=== PATIENT | male | born 1945 | race Caucasian/White ===

== ENCOUNTER 2017-01-27 15:41 | Inpatient (IN) | payer OTHER, MEDICARE ==
[~2017-01-27] VITALS: Ht 188 cm; Wt 94.3 kg
[~2017-01-27 15:41] MED LIST: TAB-TAB PO; VITA100017 PO
[2017-01-27 15:45] VITALS: BP 119/67; PULSE 72; RESP 17; TEMP 97.7; O2SAT 92
--- NOTE | 2017-01-27 15:48 | PD ---
Physical Exam Time Seen by Provider: 15:46 Narrative 71[facility]. Denies chest pain. Hx of spontaneous collapsed lung in 1973. Denies hx of of COPD or Asthma. VS reviewed. Patient seen in triage. Awaiting bed placement. Data Data Last Documented VS Vital Signs Date Time Temp Pulse Resp B/P Pulse Ox O2 Delivery O2 Flow Rate FiO2 01/27/17 15:45 97.7 72 17 119/67 92 MDM Supervised Visit with NEHAL: Cheri Calles January 27, 2017 15:48
[2017-01-27 15:56] VITALS: O2SAT 100
[2017-01-27] MEDS ORDERED: SIMV40TA PO (16:00)
[2017-01-27] MEDS ORDERED: CARV25TA PO (16:00)
[2017-01-27] MEDS ORDERED: ENAL5TAB PO (16:00)
[2017-01-27] MEDS ORDERED: FURO20TA PO (16:00)
--- NOTE | 2017-01-27 16:13 | PD ---
HPI Chief Complaint: Respiratory Symptoms Time Seen by Provider: 16:08 Travel History International Travel<30 days: No Contact w/Intl Traveler<30days: No Traveled to known affect area: No History of Present Illness HPI Patient comes in at the advice of the [facility] for further treatment and evaluation of his shortness of breath and abdominal discomfort ongoing for 10 days since quitting smoking. Patient states he is a bowel movement every morning but since he quit smoking did not have of vomiting for 3 days and had a drink some Epsom Salt with Warm Water to Have a Bowel Movement. Patient states he last had a bowel movement yesterday was hard. Patient denies any melena, bright red blood per rectum, nausea, vomiting, chest pain, headache, fevers, or previous episodes like this. Patient states he feels his abdomen is distended and is concerned this is contributing to his shortness of breath. Patient states he's having trouble sleeping at night as he cannot get comfortable. PFSH Past Medical History Arthritis: No Asthma: No Autoimmune Disease: No Blood Disorders: No Anxiety: No Depression: No Heart Rhythm Problems: No Cancer: No Cardiovascular Problems: No High Cholesterol: Yes Chemotherapy: No Chest Pain: No Congestive Heart Failure: Yes COPD: Yes Cerebrovascular Accident: No Diabetes: No Diminished Hearing: No Endocrine: No Gastrointestinal Disorders: Yes GERD: No Glaucoma: No Genitourinary: No Headaches: No Hepatitis: No Hiatal Hernia: No Hypertension: Yes Immune Disorder: No Kidney Stones: No Musculoskeletal: No Neurologic: No Psychiatric: No Reproductive: No Respiratory: Yes Migraines: No Myocardial Infarction: No Radiation Therapy: No Renal Failure: No Seizures: No Sickle Cell Disease: No Sleep Apnea: No Thyroid Disease: No Ulcer: No Past Surgical History Abdominal Surgery: Yes (APPENDECTOMY) AICD: No Appendectomy: Yes Arteriovenous Shunt: No Cardiac Surgery: No Cholecystectomy: No Ear Surgery: No Endocrine Surgery: No Eye Surgery: Yes (STITCHES RIGHT EYE) Genitourinary Surgery: No Insulin Pump: No Joint Replacement: No Oral Surgery: No Pacemaker: No Thoracic Surgery: No Other Surgery: Yes Social History Alcohol Use: Yes (OCC.) Tobacco Use: No (1PPD CIGARETTS QUIT 10 days ago) Substance Use: No Allergies-Medications (Allergen,Severity, Reaction): Coded Allergies: No Known Allergies (Verified , 10/08/09) Reported Meds & Prescriptions Reported Meds & Active Scripts Active Reported Carvedilol 25 Mg Tab 25 Mg PO BID Simvastatin 40 Mg Tab 40 Mg PO HS Enalapril (Enalapril Maleate) 5 Mg Tab 5 Mg PO DAILY Furosemide 20 Mg Tab 20 Mg PO DAILY Review of Systems Except as stated in HPI: all other systems reviewed are Neg Physical Exam Narrative GENERAL: Well-developed, overly nourished, in no acute distress, and non-ill appearing. SKIN: Focused skin assessment warm and dry. HEAD: Atraumatic. Normocephalic. EYES: Pupils equal and round. EOMI. No scleral icterus. No injection or drainage. ENT: No nasal bleeding or discharge. Mucous membranes pink and moist. NECK: Trachea midline. No JVD. Supple. No nuclear rigidity. CARDIOVASCULAR: Regular rate and rhythm. No murmur appreciated. RESPIRATORY: No accessory muscle use. No respiratory distress. Clear to auscultation. Breath sounds equal bilaterally. GASTROINTESTINAL: Abdomen soft, non-tender, slightly distended. Hepatic and splenic margins not palpable. Hyperactive bowel sounds 4. No pulsatile mass. MUSCULOSKELETAL: No obvious deformities. No clubbing. No cyanosis. Trace edema bilateral lower extremities. Full range of motion. NEUROLOGICAL: Awake and alert. No obvious cranial nerve deficits. Motor grossly within normal limits. Normal speech. PSYCHIATRIC: Appropriate mood and affect; insight and judgment normal. Data Data Last Documented VS Vital Signs Date Time Temp Pulse Resp B/P Pulse Ox O2 Delivery O2 Flow Rate FiO2 01/27/17 18:00 71 16 130/104 100 Room Air 01/27/17 15:45 97.7 Orders Complete Blood Count With Diff (01/27/17 16:03) Comprehensive Metabolic Panel (01/27/17 16:03) Lipase (01/27/17 16:03) Prothrombin Time / Inr (Pt) (01/27/17 16:03) Act Partial Throm Time (Ptt) (01/27/17 16:03) Ct Abd/Pel W Iv Contrast(Rout) (01/27/17 16:03) Iv Access Insert/Monitor (01/27/17 16:03) Ecg Monitoring (01/27/17 16:03) Oximetry (01/27/17 16:03) Sodium Chloride 0.9% Flush (Ns Flush) (01/27/17 16:15) Electrocardiogram (01/27/17 16:03) Chest, Single Ap (01/27/17 16:03) B-Type Natriuretic Peptide (01/27/17 16:07) Ckmb (Isoenzyme) Profile (01/27/17 16:21) Troponin I (01/27/17 16:21) Iohexol 350 Inj (Omnipaque 350 Inj) (01/27/17 17:15) Furosemide Inj (Lasix Inj) (01/27/17 18:00) Aspirin Chew (Aspirin Chew) (01/27/17 18:00) Admit Order (Ed Use Only) (01/27/17 18:01) Labs Laboratory Tests Test 01/27/17 01/27/17 16:05 16:30 White Blood Count 10.8 TH/MM3 Red Blood Count 5.17 MIL/MM3 Hemoglobin 15.1 GM/DL Hematocrit 47.5 % Mean Corpuscular Volume 91.9 FL Mean Corpuscular Hemoglobin 29.3 PG Mean Corpuscular Hemoglobin 31.8 % Concent Red Cell Distribution Width 15.0 % Platelet Count 255 TH/MM3 Mean Platelet Volume 7.9 FL Neutrophils (%) (Auto) 73.1 % Lymphocytes (%) (Auto) 13.0 % Monocytes (%) (Auto) 10.1 % Eosinophils (%) (Auto) 2.6 % Basophils (%) (Auto) 1.2 % Neutrophils # (Auto) 7.9 TH/MM3 Lymphocytes # (Auto) 1.4 TH/MM3 Monocytes # (Auto) 1.1 TH/MM3 Eosinophils # (Auto) 0.3 TH/MM3 Basophils # (Auto) 0.1 TH/MM3 CBC Comment DIFF FINAL Differential Comment Sodium Level 142 MEQ/L Potassium Level 4.6 MEQ/L Chloride Level 108 MEQ/L Carbon Dioxide Level 26.1 MEQ/L Anion Gap 8 MEQ/L Blood Urea Nitrogen 18 MG/DL Creatinine 1.35 MG/DL Estimat Glomerular Filtration 52 ML/MIN Rate Random Glucose 82 MG/DL Calcium Level 9.0 MG/DL Total Bilirubin 0.8 MG/DL Aspartate Amino Transf 14 U/L (AST/SGOT) Alanine Aminotransferase 15 U/L (ALT/SGPT) Alkaline Phosphatase 92 U/L Total Creatine Kinase 76 U/L Troponin I 0.06 NG/ML B-Type Natriuretic Peptide 1138 PG/ML Total Protein 7.5 GM/DL Albumin 3.5 GM/DL Lipase 138 U/L Prothrombin Time 11.8 SEC Prothromb Time International 1.1 RATIO Ratio Activated Partial 25.1 SEC Thromboplast Time MDM Medical Decision Making Medical Screen Exam Complete: Yes Emergency Medical Condition: Yes Interpretation(s) EKG reviewed by Dr. Sanchez shows a paced rhythm with ventricular rate of 69. Chest x-ray read by radiologist shows: CONCLUSION: Bilateral airspace disease. Small right pleural effusion cardiac pacemaker. CT abdomen read by the radiologist shows: CONCLUSION: Nonspecific intestinal pattern with air-fluid levels throughout the small intestinal tract. No evidence of pathologic distention. Cholelithiasis. Colonic diverticulosis without evidence of active inflammatory disease. Moderate cardiomegaly and loculated bilateral pleural effusions. Differential Diagnosis Acute coronary syndrome, CHF exacerbation, ileus, constipation, SBO, pneumonia, other Narrative Course Patient seen and examined. Initial laboratory and radiological studies were obtained and reviewed. Patient is given IV Lasix and aspirin. Discussed patient with Dr. Sanchez, who saw and evaluated the patient and is in agreement with plan of care and disposition. Discussed all findings and plan of care with patient, who is agreeable for admission. All questions were answered. Patient remained stable throughout ED course. Physician Communication Physician Communication [address] Aguila, who is agreeable to admit patient. Diagnosis Primary Impression: CHF exacerbation Qualified Code: I50.9 - Acute on chronic congestive heart failure, unspecified congestive heart failure type Additional Impressions: Elevated troponin Cardiomyopathy Qualified Code: I42.9 - Cardiomyopathy, unspecified type Admitting Information Admitting Physician Requests: Observation Condition: Stable Zoran Oliver January 27, 2017 16:13
[2017-01-27] MEDS ORDERED: SODIUM CHLORIDE 0.9% FLUSH 10 ML FLUSH IV FLUSH PRN ×2 (16:15→19:45)
[2017-01-27 16:24] LABS: AUTOMATED NEUTROPHIL # 7.9 TH/MM3 (1.8-7.7); BASOPHIL # 0.1 TH/MM3 (0-0.2); BASOPHIL % 1.2 % (0.0-2.0); EOSINOPHIL # 0.3 TH/MM3 (0-0.4); EOSINOPHIL % 2.6 % (0.0-4.0); HEMATOCRIT 47.5 % (39.0-51.0); HEMO FLAGS DIFF FINAL; LYMPHOCYTE # 1.4 TH/MM3 (1.0-4.8); MEAN CELL VOLUME 91.9 FL (80.0-100.0); MEAN CORPUSCULAR HEMOGLOBIN 29.3 PG (27.0-34.0); MEAN CORPUSCULAR HGB CONC 31.8 % (32.0-36.0); MONO % 10.1 % (0.0-8.0); NEUT % 73.1 % (16.0-70.0); PLATELET COUNT 255 TH/MM3 (150-450); RED BLOOD COUNT 5.17 MIL/MM3 (4.50-5.90); WHITE BLOOD COUNT 10.8 TH/MM3 (4.0-11.0)
--- NOTE | 2017-01-27 16:34 | RADRPT ---
EXAM DATE/TIME: 01/27/2017 16:20 [facility] COMPARISON: No previous studies available for comparison. INDICATIONS : Short of breath. MEDICAL HISTORY : None. SURGICAL HISTORY : Pacemaker. ENCOUNTER: Initial ACUITY: 1 week PAIN SCORE: 0/10 LOCATION: Bilateral chest FINDINGS: Patchy airspace disease is identified in both lung bases and in the mid left lung. There is a small r ight pleural effusion. Heart is at the upper limits of normal in size. Pacemaker is noted in place. CONCLUSION: Bilateral airspace disease Small right pleural effusion cardiac pacemaker. Pop Parkinson MD on January 27, 2017 at 16:30 Board Certified Radiologist. This report was verified electronically.
[2017-01-27 17:00] LABS: ALKALINE PHOSPHATASE 92 U/L (45-117); ALT (GPT) 15 U/L (12-78); ANION GAP 8 MEQ/L (5-15); AST (GOT) 14 U/L (15-37); BICARBONATE 26.1 MEQ/L (21.0-32.0); BLOOD UREA NITROGEN 18 MG/DL (7-18); CHLORIDE 108 MEQ/L (98-107); GLOMERULAR FILTRATION RATE 52 ML/MIN (>89); POTASSIUM 4.6 MEQ/L (3.5-5.1); SODIUM (NA) 142 MEQ/L (136-145); TOTAL BILIRUBIN ADULT 0.8 MG/DL (0.2-1.0)
[2017-01-27] MEDS ORDERED: IOHEXOL 350 MG/ML 10 ML VIAL (for RAD DIAG) IV ONE (17:15)
[2017-01-27 17:17] LABS: APTT (PATIENT) 25.1 SEC (24.3-30.1); INTERNATIONAL NORMALIZED RATIO 1.1 RATIO; PROTHROMBIN TIME - PATIENT 11.8 SEC (9.8-11.6)
--- NOTE | 2017-01-27 17:36 | RADRPT ---
EXAM DATE/TIME: 01/27/2017 17:18 [facility] COMPARISON: No previous studies available for comparison. INDICATIONS : Abdomen pain. IV CONTRAST: 75 cc Omnipaque 350 (iohexol) IV ORAL CONTRAST: No oral contrast ingested. RADIATION DOSE: 12.15 CTDIvol (mGy) MEDICAL HISTORY : None SURGICAL HISTORY : Appendectomy. ENCOUNTER: Initial ACUITY: 1 day PAIN SCALE: 4/10 LOCATION: Bilateral abdomen. TECHNIQUE: Volumetric scanning of the abdomen and pelvis was performed. Using automated exposure control and ad justment of the mA and/or kV according to patient size, radiation dose was kept as low as reasonably achievable to obtain optimal diagnostic quality images. FINDINGS: LOWER LUNGS: Loculated appearing effusions are identified in both bases. There is associated pleural thickening an d calcified pleural plaque. Streaky air space disease suggesting atelectasis and/or scarring is noted . Heart is moderately enlarged. LIVER: Homogeneous density without lesion. There is no dilation of the biliary tree. A single calcified gal lstone is identified. SPLEEN: Normal size without lesion. PANCREAS: Within normal limits. KIDNEYS: Normal in size and shape. There is no mass, stone or hydronephrosis. ADRENAL GLANDS: Within normal limits. VASCULAR: There is no aortic aneurysm. BOWEL/MESENTERY: Air-fluid levels are scattered throughout the small intestinal tract. There is no evidence of patholo gic distention, free air or mass effect. Multiple diverticula are seen throughout the sigmoid colon. There are no pericolonic inflammatory changes. ABDOMINAL WALL: A small fat containing umbilical hernia is noted. RETROPERITONEUM: There is no lymphadenopathy. BLADDER: No wall thickening or mass. REPRODUCTIVE: Within normal limits. INGUINAL: There is no lymphadenopathy or hernia. MUSCULOSKELETAL: Hypertrophic facet arthropathy is noted in the lower lumbar spine. CONCLUSION: Nonspecific intestinal pattern with air-fluid levels throughout the small intestinal tract. No evidence of pathologic distention. Cholelithiasis Colonic diverticulosis without evidence of active inflammatory disease. Moderate cardiomegaly and loculated bilateral pleural effusions. Pop Parkinson MD on January 27, 2017 at 17:28 Board Certified Radiologist. This report was verified electronically.
[2017-01-27 18:00] VITALS: BP 130/104; PULSE 71; RESP 16; O2SAT 100
[2017-01-27] MEDS ORDERED: FUROSEMIDE 40 MG/4 ML VIAL IV PUSH ONE (18:00)
[2017-01-27] MEDS: ASPIRIN 81 MG CHEW TAB PO ONE ×2 (18:00→18:10)
[2017-01-27 19:00] VITALS: BP 108/69; PULSE 74; RESP 16; O2SAT 100
[2017-01-27] MEDS ORDERED: ONDANSETRON HCL 4 MG/2 ML VIAL IVP PRN (19:45)
[2017-01-27] MEDS ORDERED: MAGNESIUM HYDROXIDE SUSP 30 ML CUP PO PRN (19:45)
[2017-01-27] MEDS ORDERED: NALOXONE HCL 0.4 MG/ML AMP IV PRN (19:45)
[2017-01-27] MEDS ORDERED: ACETAMINOPHEN 325 MG TAB PO PRN (19:45)
[2017-01-27 21:00] VITALS: BP 115/74; PULSE 40; PULSE 70; RESP 16; O2SAT 100
[2017-01-27] MEDS ORDERED: NON-FORMULARY DRUG (Simvastatin 40 MG) PO SCH (21:00)
--- NOTE | 2017-01-27 21:26 | HHI.HP ---
[facility] Admission Diagnosis CHF, elevated troponin, cardiomyopathy Diagnoses: Chief Complaint: SOB with abdominal bloating Travel History International Travel<30 Days: No Contact w/Intl Traveler <30 Da: No Traveled to Known Affected Are: No History of Present Illness This is a pleasant 71-year-old male patient with past medical history which includes congestive heart failure- last recorded echocardiogram 2009 ejection fraction of 20-25% status post pacemaker/AICD placement, dilated cardiomyopathy , hyperlipidemia, hypertension and COPD. Patient reports he stopped smoking approximately 2 weeks ago and since then has been experiencing shortness of breath which is gone progressively worse associated with abdominal bloating/ distention. Patient reports for the past 4-5 nights he has been, "gulping for air," unable to lay flat has had to sleep sitting up on the couch. Patient also reports associated anxiety with his shortness of breath. Patient denies chest pain, cough, weight gain, changes in diet, changes in medication or lower extremity edema. Patient initially thought the abdominal distention was secondary to constipation took Epsom salts as a laxative at home with positive bowel movement 1 day ago. Abdominal bloating/distention has continued. BNP 1138, troponin 0.06 Abdominal/pelvis CT reveals moderate cardiomegaly and loculated bilateral pleural effusions Review of Systems Except as stated in HPI: all other systems reviewed are Neg Past Family Social History Past Medical History congestive heart failure- last recorded echocardiogram 2009 ejection fraction of 20-25% status post pacemaker/AICD placement, dilated cardiomyopathy, hyperlipidemia, hypertension and COPD Past Surgical History Appendectomy at 19 years old Pacemaker/AICD placement Reported Medications Carvedilol 25 Mg Tab 25 Mg PO BID Simvastatin 40 Mg Tab 40 Mg PO HS Enalapril (Enalapril Maleate) 5 Mg Tab 5 Mg PO DAILY Furosemide 20 Mg Tab 20 Mg PO DAILY Aspirin 325 mg by mouth daily Allergies: Coded Allergies: No Known Allergies (Verified , 10/08/09) Active Ordered Medications Current Medications Medications (Trade) Dose Ordered Sig/Leonides Route Start Time Stop Time Status Last Admin (NS Flush) 2 ml UNSCH PRN IV FLUSH 5/8/17 19:45 (NS Flush) 2 ml BID IV FLUSH 01/27/17 21:00 (Tylenol) 650 mg Q4H PRN PO 01/27/17 19:45 (Zofran Inj) 4 mg Q6H PRN IVP 01/27/17 19:45 (Colace) 100 mg Q12H PO 01/27/17 21:00 (Milk Of Magnesia Liq) 30 ml Q12H PRN PO 01/27/17 19:45 (Lovenox Inj) 40 mg Q24H SQ 01/27/17 21:00 (Narcan Inj) 0.4 mg UNSCH PRN IV 01/27/17 19:45 (Lasix Inj) 40 mg BID@,18 IV PUSH 01/28/17 09:00 (Vasotec) 5 mg DAILY PO 01/28/17 09:00 (Pravachol) 80 mg HS PO 01/27/17 21:00 Family History Father secondary to EtOH abuse, mother also had pacemaker Social History Reports EtOH use one to 2 beers about once a week Quit smoking cigarettes approximately 2 weeks ago prior to that smoked one pack cigarettes per day had also quit from [id number] Denies illicit drug use Physical Exam Vital Signs Vital Signs Date Time Temp Pulse Resp B/P Pulse Ox O2 Delivery O2 Flow Rate FiO2 01/27/17 18:00 71 16 130/104 100 Room Air 01/27/17 15:56 14 Room Air 01/27/17 15:56 100 Room Air 01/27/17 15:45 97.7 72 17 119/67 92 Physical Exam GENERAL: This is a well-nourished, well-developed patient, in no apparent distress. SKIN: No rashes, ecchymoses or lesions. Cool and dry. HEAD: Atraumatic. Normocephalic. No temporal or scalp tenderness. EYES: Extraocular motions intact. No scleral icterus. No injection or drainage. CARDIOVASCULAR: Regular rate and rhythm without murmurs, gallops, or rubs. RESPIRATORY: Faint bibasilar crackles GASTROINTESTINAL: Abdomen soft, non-tender, slightly distended. No guarding. MUSCULOSKELETAL: Extremities without clubbing, cyanosis, or edema. No joint tenderness, effusion, or edema noted. No calf tenderness. Negative Homans sign bilaterally. NEUROLOGICAL: Awake and alert. Motor and sensory grossly within normal limits. Five out of 5 muscle strength in all muscle groups. Normal speech. Laboratory Laboratory Tests Test 01/27/17 01/27/17 16:05 16:30 White Blood Count 10.8 Red Blood Count 5.17 Hemoglobin 15.1 Hematocrit 47.5 Mean Corpuscular Volume 91.9 Mean Corpuscular Hemoglobin 29.3 Mean Corpuscular Hemoglobin 31.8 Concent Red Cell Distribution Width 15.0 Platelet Count 255 Mean Platelet Volume 7.9 Neutrophils (%) (Auto) 73.1 Lymphocytes (%) (Auto) 13.0 Monocytes (%) (Auto) 10.1 Eosinophils (%) (Auto) 2.6 Basophils (%) (Auto) 1.2 Neutrophils # (Auto) 7.9 Lymphocytes # (Auto) 1.4 Monocytes # (Auto) 1.1 Eosinophils # (Auto) 0.3 Basophils # (Auto) 0.1 CBC Comment DIFF FINAL Differential Comment Sodium Level 142 Potassium Level 4.6 Chloride Level 108 Carbon Dioxide Level 26.1 Anion Gap 8 Blood Urea Nitrogen 18 Creatinine 1.35 Estimat Glomerular Filtration 52 Rate Random Glucose 82 Calcium Level 9.0 Total Bilirubin 0.8 Aspartate Amino Transf 14 (AST/SGOT) Alanine Aminotransferase 15 (ALT/SGPT) Alkaline Phosphatase 92 Total Creatine Kinase 76 Troponin I 0.06 B-Type Natriuretic Peptide 1138 Total Protein 7.5 Albumin 3.5 Lipase 138 Prothrombin Time 11.8 Prothromb Time International 1.1 Ratio Activated Partial 25.1 Thromboplast Time Result Diagram: 01/27/17 1605 01/27/17 1605 Imaging Last Impressions Chest X-Ray 01/27/17 1603 Signed Impressions: Service Date/Time: Friday, January 27, 2017 16:20 - CONCLUSION: Bilateral airspace disease Small right pleural effusion cardiac pacemaker. Pop Parkinson MD Abdomen/Pelvis CT 01/27/17 1603 Signed Impressions: Service Date/Time: Friday, January 27, 2017 17:18 - CONCLUSION: Nonspecific intestinal pattern with air-fluid levels throughout the small intestinal tract. No evidence of pathologic distention. Cholelithiasis Colonic diverticulosis without evidence of active inflammatory disease. Moderate cardiomegaly and loculated bilateral pleural effusions. Pop Parkinson MD Assessment and Plan Problem List: (1) CHF exacerbation ICD Code: I50.9 Status: Acute (2) Cardiomyopathy ICD Code: I42.9 Status: Acute (3) Elevated troponin ICD Code: R74.8 Status: Acute (4) Pleural effusion ICD Code: J90 Status: Acute Assessment and Plan This is a pleasant 71-year-old male patient with past medical history which includes congestive heart failure- last recorded echocardiogram 2009 ejection fraction of 20-25% status post pacemaker/AICD placement, dilated cardiomyopathy , hyperlipidemia, hypertension and COPD. Patient reports he stopped smoking approximately 2 weeks ago and since then has been experiencing shortness of breath which is gone progressively worse associated with abdominal bloating/ distention. Acute exacerbation of chronic systolic congestive heart failure last recorded echocardiogram 2009 showed ejection fraction of 20-25% Bilateral pleural effusion Continue home lisinopril Hold Coreg at this time- resume if blood pressure stable Lasix 40 mg IV twice a day recheck BMP in AM Echocardiogram ordered and pending Consult cardiology Reviewed CAT scan of the abdomen/pelvis reveals: Nonspecific intestinal pattern with air-fluid levels throughout the small intestinal tract. No evidence of pathologic distention. Cholelithiasis Colonic diverticulosis without evidence of active inflammatory disease. Moderate cardiomegaly and loculated bilateral pleural effusions. Elevated troponin 0.06- with no chest pain likely secondary to CHF serial troponin serial EKG Continue aspirin daily Hyperlipidemia continue home medication Lovenox for DVT prophylaxis Discussed with ER provider, nursing patient and family members at bedside Written by Olga Spain, acting as scribe for Dr. Stern on 01/27/17 at 21 :48. This note was transcribed by scribe [Olga Spain]. I, Dr. Kadie Stern personally performed the history, physical exam, and medical decision making; and confirmed the accuracy of the information in the transcribed note. Authenticated by Dr. Kadie Stern on 01/27/17 at 6430. Physician Certification 2 Midnight Certification Type: Admission for Inpatient Services Order for Inpatient Services The services are ordered in accordance with Medicare regulations or non- Medicare payer requirements, as applicable. In the case of services not specified as inpatient-only, they are appropriately provided as inpatient services in accordance with the 2-midnight benchmark. Estimated LOS (days): 3 days is the estimated time the patient will need to remain in the hospital, assuming treatment plan goals are met and no additional complications. Post-Hospital Plan: Home Problem Qualifiers (1) CHF exacerbation: Qualified Code: I50.23 - Acute on chronic systolic congestive heart failure (2) Cardiomyopathy: Qualified Code: I42.9 - Cardiomyopathy, unspecified type Olga Spain January 27, 2017 21:26 Kadie Stern MD January 28, 2017 07:30
[2017-01-27] MEDS: SODIUM CHLORIDE 0.9% FLUSH 10 ML FLUSH IV FLUSH SCH (22:09)
[2017-01-27] MEDS: PRAVASTATIN SOD 80 MG TAB PO SCH (22:10)
[2017-01-27] MEDS: ENOXAPARIN SODIUM 40 MG/0.4 ML SYRINGE SQ SCH (22:10)
[2017-01-27] MEDS: DOCUSATE SODIUM 100 MG CAP PO SCH (22:10)
[2017-01-28 00:45] VITALS: BP 104/54; PULSE 75; RESP 18; TEMP 95.9; O2SAT 94
[2017-01-28 04:19] VITALS: BP 95/51; PULSE 68; RESP 18; TEMP 96.2; O2SAT 92
[2017-01-28 04:29] LABS: AUTOMATED NEUTROPHIL # 7.8 TH/MM3 (1.8-7.7); BASOPHIL # 0.2 TH/MM3 (0-0.2); BASOPHIL % 1.4 % (0.0-2.0); EOSINOPHIL # 0.4 TH/MM3 (0-0.4); EOSINOPHIL % 3.5 % (0.0-4.0); HEMATOCRIT 44.2 % (39.0-51.0); HEMO FLAGS DIFF FINAL; LYMPH % 14.7 % (9.0-44.0); LYMPHOCYTE # 1.6 TH/MM3 (1.0-4.8); MEAN CORPUSCULAR HEMOGLOBIN 30.4 PG (27.0-34.0); MEAN CORPUSCULAR HGB CONC 33.8 % (32.0-36.0); MONO % 8.5 % (0.0-8.0); NEUT % 71.9 % (16.0-70.0); PLATELET COUNT 251 TH/MM3 (150-450); RED BLOOD COUNT 4.91 MIL/MM3 (4.50-5.90); RED CELL DISTRIBUTION WIDTH 14.6 % (11.6-17.2); WHITE BLOOD COUNT 10.8 TH/MM3 (4.0-11.0)
[2017-01-28 04:54] LABS: BICARBONATE 31.2 MEQ/L (21.0-32.0); POTASSIUM 4.4 MEQ/L (3.5-5.1)
[2017-01-28 08:00] VITALS: BP 112/68; PULSE 80; RESP 18; TEMP 98.3; O2SAT 94
--- NOTE | 2017-01-28 08:30 | MB ---
cc: AISSATOU VALLADARES MD DATE OF CONSULTATION January 27, 2017 REASON FOR CONSULTATION CHF. HISTORY OF PRESENT ILLNESS Mr. Bean he is a 71-year-old man you does have a nonischemic cardiomyopathy by catheterization in 2009 and a known ejection fraction of about 20%. He is status post ICD and does also have a history of hypertension, hyperlipidemia and COPD. He reports he quit smoking and 4-5 days later had progressive shortness of breath. He reports that he was gulping for air and unable to lie flat. The patient presented to the [facility] and was subsequently referred to [place]. The patient notes that after the Lasix in the ER yesterday he did have fairly significant diuresis and is feeling some better this morning. PAST MEDICAL HISTORY 1. Nonischemic cardiomyopathy with ICD. 2. Hypertension. 3. Hyperlipidemia. 4. COPD. OUTPATIENT MEDICATIONS 1. Carvedilol 25 mg b.i.d. 1. Simvastatin 40 mg q.h.s. 2. Enalapril 5 mg a day. 3. Lasix 20 mg a day. 4. Aspirin. ALLERGIES No known drug allergies. SOCIAL HISTORY The patient occasionally has alcohol and quit smoking about two weeks ago. FAMILY HISTORY Negative for CAD. REVIEW OF SYSTEMS Except as mentioned in the HPI, all 12 systems are negative. PHYSICAL EXAMINATION VITAL SIGNS: 96.2, 68, 18, 95/51. GENERAL: In general he is well appearing man who is in no apparent distress. NECK: His neck is free from JVD. LUNGS: Decreased in the bases. CARDIOVASCULAR EXAMINATION: He has a normal S1 and S2. I did not appreciate any murmurs, rubs or gallops. ABDOMEN: Sof. EXTREMITIES: trace amount of edema. CHEST X-RAY From 01/27/2017 shows bilateral air space disease and a small right pleural effusion. CT ABDOMEN She has a nonspecific intestinal pattern with a air-fluid levels, moderate cardiomegaly and bilateral loculated pleural effusions. LAB VALUES Significant for serial troponins of 0.06/0.06/0.6. His BNP 1138 and creatinine is 1.54. His creatinine yesterday was 1.35 and in 2009 was 1.0. IMPRESSION Acute on chronic systolic failure - The patient does have a history of a nonischemic cardiomyopathy and had done reasonably well. He does have an elevated BNP and effusions along with his progressive shortness of breath that does suggest CHF. He has responded nicely to diuresis. His creatinine has creeped up a bit. In light of this, I am going to decrease his Lasix back to his p.o. dosing. We will obtain an echocardiogram. His Coreg should absolutely be restarted. If he is stable in the a.m., it is reasonable for discharge. Hypertension - The patient's BP today is a bit low which is somewhat expected when his cardiac meds are maxed out for his heart failure. Hyperlipidemia - The patient will continue on a statin. Allyson Trevino /7:42 AM /8:21 AM
[2017-01-28] MEDS ORDERED: FUROSEMIDE 40 MG/4 ML VIAL IV PUSH SCH (09:00)
[2017-01-28] MEDS: ENALAPRIL MALEATE 5 MG TAB PO SCH (09:00)
[2017-01-28] MEDS: DOCUSATE SODIUM 100 MG CAP PO SCH ×2 (09:53→21:03)
[2017-01-28] MEDS: SODIUM CHLORIDE 0.9% FLUSH 10 ML FLUSH IV FLUSH SCH ×2 (09:54→21:04)
[2017-01-28] MEDS: POTASSIUM CHLORIDE 10 MEQ CONTROLLED RELEASE TAB PO SCH ×2 (09:54→21:00)
[2017-01-28] MEDS: CARVEDILOL 12.5 MG TAB PO SCH ×2 (09:54→21:02)
[2017-01-28] MEDS: FUROSEMIDE 20 MG TAB PO SCH ×2 (09:55→17:44)
[2017-01-28] MEDS: ASPIRIN EC 81 MG TABEC PO SCH (09:55)
[2017-01-28 12:00] VITALS: BP 103/59; PULSE 73; RESP 18; TEMP 98.1; O2SAT 95
--- NOTE | 2017-01-28 15:16 | EC ---
Study Study Date:01/28/2017 STUDY CONCLUSIONS SUMMARY - Left ventricle: The cavity size was moderately to severely dilated. Wall thickness was normal. Systolic function was severely reduced. The estimated ejection fraction was in the range of 10% to 15%. Diffuse hypokinesis. - Aortic valve: Valve area: 2.64cm^2 (Vmax). - Mitral valve: Mild regurgitation. - Left atrium: The atrium was mildly dilated. - Tricuspid valve: Mild regurgitation. - Pulmonary arteries: Systolic pressure was mildly increased. If LV function is below 40, please consider prescribing an ACEI or ARB or document rationale for non-use. PROCEDURE DATA STUDY STATUS: Elective. Procedure: Transthoracic echocardiography. Image quality was good. Scanning was performed from the parasternal, apical, and subcostal acoustic windows. Study completion: The patient tolerated the procedure well. Transthoracic echocardiography. M-mode, complete 2D, complete spectral Doppler, and color Doppler. Height: Height: 74in. Weight: Weight: 206.6lb. Body mass index: BMI: 26.6kg/m^2. Body surface area: BSA: 2.21m^2. Patient status: Inpatient. CARDIAC ANATOMY LEFT VENTRICLE: The cavity size was moderately to severely dilated. Wall thickness was normal. Systolic function was severely reduced. The estimated ejection fraction was in the range of 10% to 15%. Diffuse hypokinesis. AORTIC VALVE: Trileaflet; normal thickness leaflets. Doppler: Transvalvular velocity was within the normal range. There was no stenosis. No regurgitation. Valve area: 2.64cm^2 (Vmax). Indexed valve area: 1.19cm^2/m^2 (Vmax). AORTA: Aortic root: The aortic root was normal in size. MITRAL VALVE: Structurally normal valve. Doppler: Transvalvular velocity was within the normal range. There was no evidence for stenosis. Mild regurgitation. Valve area by pressure half-time: 3.93cm^2. Indexed valve area by pressure half-time: 1.78cm^2/m^2. Mean gradient: 1mm Hg (D). Peak gradient: 3mm Hg (D). LEFT ATRIUM: The atrium was mildly dilated. RIGHT VENTRICLE: The cavity size was normal. Wall thickness was normal. PULMONIC VALVE: Doppler: Transvalvular velocity was within the normal range. There was no evidence for stenosis. No regurgitation. TRICUSPID VALVE: Structurally normal valve. Doppler: Transvalvular velocity was within the normal range. Mild regurgitation. Peak gradient: 33mm Hg (D). PULMONARY ARTERY: The main pulmonary artery was normal-sized. Systolic pressure was mildly increased. RIGHT ATRIUM: The atrium was normal in size. PERICARDIUM: There was no pericardial effusion. SYSTEMIC VEINS: Inferior vena cava: The vessel was normal in size. Patient weight: 206.6lb _Ejection fraction:_ 65-75% _Fractional shortening:_ 32% up to 5Kg 5-11.5Kg 11.6-22.9Kg 23-45Kg 45-57Kg Aortic Root 7-13 <17 13-22 17-27 17-27 LA diam 6-13 <23 24-38 33-47 37-40 RVID 10-17 7-15 7-15 7-18 8-17 LVIDd 12-22 <32 24-38 33-47 37-40 LVPW 2-4 3-6 5-7 6-8 7-8 IVS 2-4 3-6 5-7 6-8 7-8 BASIC MEASUREMENTS ADULT NORMAL Left ventricle LV internal dimension, ED, chordal *77.1 mm 43-52 level, PLAX LV internal dimension, ES, chordal *72.7 mm 23-38 level, PLAX Fractional shortening, chordal level, *6 % >29 PLAX LV posterior wall thickness, ED 11.3 mm IVS/LVPW ratio, ED 1 <1.3 Volume, ED, MOD, 1-plane 249 ml Volume, ES, MOD, 1-plane 211 ml Ejection fraction, MOD, 1-plane 15 % Stroke volume, MOD, 1-plane 38 ml Volume index, ED, MOD, 1-plane 113 ml/m^2 Volume index, ES, MOD, 1-plane 95 ml/m^2 Stroke index, MOD, 1-plane 17.2 ml/m^2 Ventricular septum Septal thickness, ED 11.3 mm Aortic valve Leaflet separation 18 mm 15-26 Left atrium Anterior-posterior dimension 42 mm Anterior-posterior dimension index 1.9 cm/m^2 <2.2 Right ventricle RV internal dimension, ED, PLAX 36.4 mm 19-38 BASIC MEASUREMENTS ADULT NORMAL Aortic valve Leaflet separation 18 mm 15-26 Aorta Root diameter, ED 29 mm 20-37 DOPPLER MEASUREMENTS ADULT NORMAL Aortic valve Peak velocity, S 125 cm/s VTI, S 25.7 cm Valve area, Vmax 2.64 cm^2 Valve area index, Vmax 1.19 cm^2/m^2 Regurgitant velocity, ED 188 cm/s Regurgitant deceleration 611 cm/s^2 Regurgitant pressure half-time 900 ms Regurgitant gradient, ED 14 mm Hg Mitral valve Peak E-wave velocity 96.7 cm/s Peak A-wave velocity 61.7 cm/s Mean velocity, D 48.6 cm/s Pressure half-time 56 ms Mean gradient, D 1 mm Hg Peak gradient, D 3 mm Hg Peak E/A ratio 1.6 Valve area, pressure half-time 3.93 cm^2 Valve area index, pressure half-time 1.78 cm^2/m^2 Tricuspid valve Peak gradient, D 33 mm Hg Maximal inflow velocity 286 cm/s Systemic veins Estimated CVP 10 mm Hg Pulmonic valve Peak velocity, S 100 cm/s LEGEND: Mean values are shown as u=mean value. Asterisk (*) katz values outside specified normal range. Prepared and signed by Nurys Ramos [id number]
[2017-01-28 16:00] VITALS: BP 104/56; PULSE 74; RESP 18; TEMP 97.8; O2SAT 92
--- NOTE | 2017-01-28 16:24 | HHI.PR ---
Subjective Remarks Follow-up for CHF exacerbation Patient denies any shortness of breathing. He feels like he is doing very well. Deny any cough. Patient is anxious to go home. Patient states making good urine output. Objective Vitals Vital Signs Date Time Temp Pulse Resp B/P Pulse Ox O2 Delivery O2 Flow Rate FiO2 01/28/17 12:00 98.1 73 18 103/59 95 01/28/17 08:00 98.3 80 18 112/68 94 01/28/17 04:19 96.2 68 18 95/51 92 01/28/17 00:45 95.9 75 18 104/54 94 01/27/17 21:00 70 16 115/74 100 Room Air 01/27/17 19:00 74 16 108/69 100 Room Air 01/27/17 18:00 71 16 130/104 100 Room Air I/O 01/27/17 01/27/17 01/27/17 01/28/17 01/28/17 01/28/17 06:59 14:59 22:59 06:59 14:59 22:59 Intake Total 240 ml Balance 240 ml Intake Oral 240 ml # Voids 2 # Bowel Movements 0 Result Diagram: 01/28/17 0418 01/28/17 0418 Objective Remarks GENERAL: in NAD SKIN: Warm and dry. HEAD: Normocephalic. EYES: No scleral icterus. No injection or drainage. NECK: Supple, trachea midline. No JVD or lymphadenopathy. CARDIOVASCULAR: Regular rate and rhythm without murmurs, gallops, or rubs. RESPIRATORY: Bilateral basilar crackles. No accessory muscle use. GASTROINTESTINAL: Abdomen soft, non-tender, nondistended. MUSCULOSKELETAL: No cyanosis, or edema. BACK: Nontender without obvious deformity. No CVA tenderness. Medications and IVs Current Medications Sodium Chloride (NS Flush) 2 ml UNSCH PRN IV FLUSH FLUSH AFTER USING IV ACCESS ; Start 01/27/17 at 16:15; Stop 01/27/17 at 19:53; Status DC Iohexol (Omnipaque 350 Inj) 75 ml STK-MED ONCE IV Last administered on t 17:15; Start 01/27/17 at 17:15; Stop 01/27/17 at 17:16; Status DC Furosemide (Lasix Inj) 40 mg ONCE ONCE IV PUSH Last administered on 01/27/17 18:10; Start 01/27/17 at 18:00; Stop 01/27/17 at 18:01; Status DC Aspirin (Aspirin Chew) 162 mg ONCE ONCE PO ; Start 01/27/17 at 18:00; Stop at 18:01; Status DC Sodium Chloride (NS Flush) 2 ml UNSCH PRN IV FLUSH FLUSH AFTER USING IV ACCESS ; Start 01/27/17 at 19:45 Sodium Chloride (NS Flush) 2 ml BID IV FLUSH Last administered on 01/28/17 09: 54; Start 01/27/17 at 21:00 Acetaminophen (Tylenol) 650 mg Q4H PRN PO TEMP > 100.4; Start 01/27/17 at 19:45 Ondansetron HCl (Zofran Inj) 4 mg Q6H PRN IVP NAUSEA OR VOMITING; Start at 19:45 Docusate Sodium (Colace) 100 mg Q12H PO Last administered on 01/28/17 09:53; Start 01/27/17 at 21:00 Magnesium Hydroxide (Milk Of Magnesia Liq) 30 ml Q12H PRN PO CONSTIPATION; Start 01/27/17 at 19:45 Enoxaparin Sodium (Lovenox Inj) 40 mg Q24H SQ Last administered on 01/27/17 22: 10; Start 01/27/17 at 21:00 Naloxone HCl (Narcan Inj) 0.4 mg UNSCH PRN IV SEE LABEL COMMENTS; Start at 19:45 Furosemide (Lasix Inj) 40 mg BID@,18 IV PUSH ; Start 01/28/17 at 09:00; Stop at 09:00; Status DC Enalapril Maleate (Vasotec) 5 mg DAILY PO ; Start 01/28/17 at 09:00 Non-Formulary Medication 40 mg HS PO CM; Start 01/27/17 at 21:00; Status UNV Pravastatin Sodium (Pravachol) 80 mg HS PO Last administered on 01/27/17 22:10 ; Start 01/27/17 at 21:00 Aspirin (Ecotrin Ec) 81 mg DAILY PO Last administered on 01/28/17 09:55; Start 01/28/17 at 09:00 Carvedilol (Coreg) 12.5 mg Q12HR PO Last administered on 01/28/17 09:54; Start 01/28/17 at 09:00 Furosemide (Lasix) 20 mg BID@09,18 PO Last administered on 01/28/17 09:55; Start 01/28/17 at 09:00 Potassium Chloride (KCl) 10 meq Q12HR PO Last administered on 01/28/17 09:54; Start 01/28/17 at 09:00 A/P Problem List: (1) CHF exacerbation ICD Code: I50.9 Status: Acute (2) Cardiomyopathy ICD Code: I42.9 Status: Acute (3) Elevated troponin ICD Code: R74.8 Status: Acute (4) Pleural effusion ICD Code: J90 Status: Acute Assessment and Plan Acute exacerbation of chronic systolic congestive heart failure last recorded echocardiogram 2009 showed ejection fraction of 20-25% Bilateral pleural effusion Continue home lisinopril Per copy center specialist continue her Coreg. Patient was initially put on Lasix 40 mg IV twice a day clinically he is doing well and his creatinine did increase. Admissions Dean is following and decreased his Lasix to his home dose. CAT scan of the abdomen/pelvis reveals: Nonspecific intestinal pattern with air-fluid levels throughout the small intestinal tract. No evidence of pathologic distention. Cholelithiasis Colonic diverticulosis without evidence of active inflammatory disease. Moderate cardiomegaly and loculated bilateral pleural effusions. Elevated troponin 0.06- with no chest pain likely secondary to CHF Troponins are stable. Mild elevation due to CHF. Continue aspirin daily Acute on chronic renal insufficiency -Secondary to diuretics. -Diuretic dosage was decreased. We'll continue to monitor. -Avoid nephrotoxins. Hyperlipidemia continue home medication Lovenox for DVT prophylaxis Discharge Planning Per copy center specialist patient continues to do well clinically tomorrow and his kidney function improves he can be discharged tomorrow morning. Problem Qualifiers (1) CHF exacerbation: Qualified Code: I50.23 - Acute on chronic systolic congestive heart failure (2) Cardiomyopathy: Qualified Code: I42.9 - Cardiomyopathy, unspecified type Cynthia Aguila MD January 28, 2017 16:24
--- NOTE | 2017-01-28 17:06 | EKG ---
Date Performed: 01/27/2017 Time Performed: 16:12:37 PTAGE: 71 years EKG: ELECTRONIC VENTRICULAR PACEMAKER MARKED ST ELEVATION, CONSIDER ANTEROLATERAL INJURY MARKED ST DEPRESSION, CONSIDER SUBENDOCARDIAL INJURY Compared to PREVIOUS TRACING , there is now evidence of paced rhythm. Non-specific ST-T wave changes continue. PREVIOUS TRACIN10/09/2009 03.12 DOCTOR: Joie Izquierdo Interpretating Date/Time 01/28/2017 17:05:40
--- NOTE | 2017-01-28 17:06 | EKG ---
Date Performed: 01/28/2017 Time Performed: 08:16:29 PTAGE: 71 years EKG: ELECTRONIC VENTRICULAR PACEMAKER ABNORMAL RHYTHM ECG Compared to PREVIOUS TRACING , paced rhythm continues. No significant change. PREVIOUS TRACIN01/27 22.16 DOCTOR: Joie Izquierdo Interpretating Date/Time 01/28/2017 17:06:26
--- NOTE | 2017-01-28 17:06 | EKG ---
Date Performed: 01/27/2017 Time Performed: 22:16:29 PTAGE: 71 years EKG: ELECTRONIC VENTRICULAR PACEMAKER ABNORMAL RHYTHM ECG Compared to PREVIOUS TRACING , the paced rhythm continues. No significant change. PREVIOUS TRACIN 01/25/2017 23.26 DOCTOR: Joie Izquierdo Interpretating Date/Time 01/28/2017 17:06:01
[2017-01-28 20:10] VITALS: BP 112/58; PULSE 83; RESP 17; TEMP 96.4; O2SAT 93
[2017-01-28] MEDS: ENOXAPARIN SODIUM 40 MG/0.4 ML SYRINGE SQ SCH (21:00)
[2017-01-28] MEDS: PRAVASTATIN SOD 80 MG TAB PO SCH (21:00)
[2017-01-29 00:10] VITALS: BP 122/65; PULSE 76; RESP 18; TEMP 97.3; O2SAT 95
[2017-01-29 04:15] VITALS: BP 112/63; PULSE 72; RESP 18; TEMP 96.2; O2SAT 93
--- NOTE | 2017-01-29 07:13 | PD.CARD.PN ---
Subjective Subjective Remarks Pt without complaints Objective Medications Current Medications Medications (Trade) Dose Ordered Sig/Leonides Route Start Time Stop Time Status Last Admin (NS Flush) 2 ml UNSCH PRN IV FLUSH 01/27/17 19:45 (NS Flush) 2 ml BID IV FLUSH 01/27/17 21:00 01/28/17 21:04 (Tylenol) 650 mg Q4H PRN PO 01/27/17 19:45 (Zofran Inj) 4 mg Q6H PRN IVP 01/27/17 19:45 (Colace) 100 mg Q12H PO 01/27/17 21:00 01/28/17 21:03 (Milk Of Magnesia Liq) 30 ml Q12H PRN PO 01/27/17 19:45 (Lovenox Inj) 40 mg Q24H SQ 01/27/17 21:00 01/27/17 22:10 (Narcan Inj) 0.4 mg UNSCH PRN IV 01/27/17 19:45 (Vasotec) 5 mg DAILY PO 01/28/17 09:00 (Pravachol) 80 mg HS PO 01/27/17 21:00 01/28/17 21:00 (Ecotrin Ec) 81 mg DAILY PO 01/28/17 09:00 01/28/17 09:55 (Coreg) 12.5 mg Q12HR PO 01/28/17 09:00 01/28/17 21:02 (Lasix) 20 mg BID@09,18 PO 01/28/17 09:00 01/28/17 17:44 (KCl) 10 meq Q12HR PO 01/28/17 09:00 01/28/17 09:54 Vital Signs / I&O Vital Signs Date Time Temp Pulse Resp B/P Pulse Ox O2 Delivery O2 Flow Rate FiO2 01/29/17 04:15 96.2 72 18 112/63 93 01/29/17 00:10 97.3 76 18 122/65 95 01/28/17 20:10 96.4 83 17 112/58 93 01/28/17 16:00 97.8 74 18 104/56 92 01/28/17 12:00 98.1 73 18 103/59 95 01/28/17 08:00 98.3 80 18 112/68 94 I/O 5/901/28/17 01/28/17 01/29/17 01/29/17 01/29/17 07:00 15:00 23:00 07:00 15:00 23:00 Intake Total 240 ml 1080 ml 240 ml Balance 240 ml 1080 ml 240 ml Intake Oral 240 ml 1080 ml 240 ml # Voids 2 7 2 # Bowel Movements 0 0 0 Physical Exam GENERAL: Well developed, well nourished. No acute distress. HEENT: Jugular venous pressure is normal. CHEST: Lungs clear to auscultation bilaterally. Unlabored respiratory effort. CARDIAC: Regular rate and rhythm without S3, S4, or murmur. ABDOMEN: Soft, nontender, no hepatosplenomegaly. Bowel sounds present. EXTREMITIES: No clubbing, cyanosis, or edema. Imaging ECHO EF 15% Assessment and Plan Assessment and Plan Acute on chronic systolic failure- EF 15%, better today -fluid and sodium cap discussed -on BID lasix, SOO and BB CKD- labs pending Dispo- ok for d/c and follow up at [facility] Nurys Ramos MD January 29, 2017 07:12
[2017-01-29 07:26] LABS: BICARBONATE 27.8 MEQ/L (21.0-32.0); POTASSIUM 4.1 MEQ/L (3.5-5.1)
[2017-01-29 07:53] VITALS: BP 121/62; PULSE 68; RESP 18; TEMP 98; O2SAT 92
[2017-01-29] MEDS: SODIUM CHLORIDE 0.9% FLUSH 10 ML FLUSH IV FLUSH SCH (09:00)
[2017-01-29] MEDS ORDERED: ASPI81TA11 PO (09:30)
[2017-01-29] MEDS ORDERED: POTA-243 PO (09:30)
[2017-01-29] MEDS ORDERED: CARV12.5 PO (09:30)
[2017-01-29] MEDS ORDERED: FURO20TA PO (09:30)
--- NOTE | 2017-01-29 09:30 | HHI.DCPOC ---
Discharge Care Plan Diagnosis: (1) CHF exacerbation (2) Elevated troponin (3) Pleural effusion Goals to Promote Your Health * To prevent worsening of your condition and complications * To maintain your health at the optimal level Directions to Meet Your Goals Take your medications as prescribed Follow your dietary instruction Follow activity as directed Keep your appointments as scheduled Take your immunizations and boosters as scheduled If your symptoms worsen call your PCP, if no PCP go to Urgent Care Center or Emergency Room Smoking is Dangerous to Your Health. Avoid second hand smoke Call the 24-hour hour crisis hotline for domestic abuse at Cynthia Aguila MD January 29, 2017 09:30
--- NOTE | 2017-01-29 09:30 | HHI.DS ---
Discharge Summary Admission Date January 27, 2017 at 18:03 Discharge Date: January 29, 2017 Admitting Diagnosis CHF, elevated troponin, cardiomyopathy (1) CHF exacerbation ICD Code: I50.9 Diagnosis: Principal (2) Cardiomyopathy ICD Code: I42.9 Diagnosis: Secondary (3) Elevated troponin ICD Code: R74.8 Diagnosis: Principal (4) Pleural effusion ICD Code: J90 Diagnosis: Principal Procedures none Brief History - From Admission This is a pleasant 71-year-old male patient with past medical history which includes congestive heart failure- last recorded echocardiogram 2010 ejection fraction of 20-25% status post pacemaker/AICD placement, dilated cardiomyopathy , hyperlipidemia, hypertension and COPD. Patient reports he stopped smoking approximately 2 weeks ago and since then has been experiencing shortness of breath which is gone progressively worse associated with abdominal bloating/ distention. Patient reports for the past 4-5 nights he has been, "gulping for air," unable to lay flat has had to sleep sitting up on the couch. Patient also reports associated anxiety with his shortness of breath. Patient denies chest pain, cough, weight gain, changes in diet, changes in medication or lower extremity edema. Patient initially thought the abdominal distention was secondary to constipation took Epsom salts as a laxative at home with positive bowel movement 1 day ago. Abdominal bloating/distention has continued. BNP 1138, troponin 0.06 Abdominal/pelvis CT reveals moderate cardiomegaly and loculated bilateral pleural effusions CBC/BMP: 01/28/17 0418 01/29/17 0635 Significant Findings Laboratory Tests Test 01/27/17 01/27/17 01/27/17 01/28/17 16:05 16:30 22:10 04:18 Mean Corpuscular Hemoglobin 31.8 % Concent (32.0-36.0) Neutrophils (%) (Auto) 73.1 % 71.9 % (16.0-70.0) (16.0-70.0) Monocytes (%) (Auto) 10.1 % 8.5 % (0.0-8.0) (0.0-8.0) Neutrophils # (Auto) 7.9 TH/MM3 7.8 TH/MM3 (1.8-7.7) (1.8-7.7) Monocytes # (Auto) 1.1 TH/MM3 (0-0.9) Chloride Level 108 MEQ/L (98-107) Creatinine 1.35 MG/DL 1.54 MG/DL (0.60-1.30) (0.60-1.30) Estimat Glomerular Filtration 52 ML/MIN (>89) 45 ML/MIN (>89) Rate Aspartate Amino Transf 14 U/L (15-37) (AST/SGOT) Troponin I 0.06 NG/ML 0.06 NG/ML 0.06 NG/ML (0.02-0.05) (0.02-0.05) (0.02-0.05) B-Type Natriuretic Peptide 1138 PG/ML (0-100) Prothrombin Time 11.8 SEC (9.8-11.6) Blood Urea Nitrogen 24 MG/DL (7-18) Test 01/29/17 06:35 Blood Urea Nitrogen 24 MG/DL (7-18) Estimat Glomerular Filtration 56 ML/MIN (>89) Rate Calcium Level 8.4 MG/DL (8.5-10.1) Imaging Last Impressions Chest X-Ray 01/27/17 1603 Signed Impressions: Service Date/Time: Friday, January 27, 2017 16:20 - CONCLUSION: Bilateral airspace disease Small right pleural effusion cardiac pacemaker. Pop Parkinson MD Abdomen/Pelvis CT 01/27/17 1603 Signed Impressions: Service Date/Time: Friday, January 27, 2017 17:18 - CONCLUSION: Nonspecific intestinal pattern with air-fluid levels throughout the small intestinal tract. No evidence of pathologic distention. Cholelithiasis Colonic diverticulosis without evidence of active inflammatory disease. Moderate cardiomegaly and loculated bilateral pleural effusions. Pop Parkinson MD PE at Discharge GENERAL: in NAD SKIN: Warm and dry. HEAD: Normocephalic. EYES: No scleral icterus. No injection or drainage. NECK: Supple, trachea midline. No JVD or lymphadenopathy. CARDIOVASCULAR: Regular rate and rhythm without murmurs, gallops, or rubs. RESPIRATORY: Bilateral basilar crackles. No accessory muscle use. GASTROINTESTINAL: Abdomen soft, non-tender, nondistended. MUSCULOSKELETAL: No cyanosis, or edema. BACK: Nontender without obvious deformity. No CVA tenderness. Pt update on day of discharge Follow-up for congestive heart failure exacerbation. Patient stated his breathing continues to be great. He denies any shortness of breathing, palpitation or chest pain. Patient very anxious to go home. He had no complaints. Hospital Course Acute exacerbation of chronic systolic congestive heart failure last recorded echocardiogram 2009 showed ejection fraction of 20-25% Bilateral pleural effusion Continue home lisinopril Per package dyer continue her Coreg. Patient was initially put on Lasix 40 mg IV twice a day clinically he is doing well and his creatinine did increase. Shape Carver is following and decreased his Lasix to his home dose. The next day patient improved. Repeat echo shows EF 15%. CAT scan of the abdomen/pelvis reveals: Nonspecific intestinal pattern with air-fluid levels throughout the small intestinal tract. No evidence of pathologic distention. Cholelithiasis Colonic diverticulosis without evidence of active inflammatory disease. Moderate cardiomegaly and loculated bilateral pleural effusions. Elevated troponin 0.06- with no chest pain likely secondary to CHF Troponins are stable. Mild elevation due to CHF. Continue aspirin daily Acute on chronic renal insufficiency -Secondary to diuretics. -Diuretic dosage was decreased and creatinine improved. -Avoid nephrotoxins. Hyperlipidemia continue home medication Pt Condition on Discharge: Good Discharge Disposition: Discharge Home Discharge Time: <= 30 minutes Discharge Instructions DIET: Follow Instructions for: Heart Healthy Diet Activities you can perform: Regular-No Restrictions Follow up Referrals: Cardiology - 2 Weeks PCP Follow-up - 1 Week New Medications: Aspirin DR (Aspirin EC) 81 Mg Tabdr 81 MG PO DAILY cardiovascular disease #30 Ref 0 TAB Carvedilol (Coreg) 12.5 Mg Tab 12.5 MG PO Q12HR cardiovascular disease #60 Ref 0 TAB Furosemide (Furosemide) 20 Mg Tab 20 MG PO BID@09,18 CHF #60 Ref 0 TAB Potassium Chloride ER (Klor-Con 10) 10 Meq Tab 10 MEQ PO Q12HR while on diuretic #60 Ref 0 TAB Continued Medications: Enalapril (Enalapril) 5 Mg Tab 5 MG PO DAILY #30 Ref 0 TAB Simvastatin (Simvastatin) 40 Mg Tab 40 MG PO HS Cholesterol Management #30 Ref 0 TAB Discontinued Medications: Carvedilol (Carvedilol) 25 Mg Tab 25 MG PO BID #60 Ref 0 TAB Furosemide (Furosemide) 20 Mg Tab 20 MG PO DAILY #30 Ref 0 TAB Cynthia Aguila MD January 29, 2017 09:30
[2017-01-29] MEDS: POTASSIUM CHLORIDE 10 MEQ CONTROLLED RELEASE TAB PO SCH (09:35)
[2017-01-29] MEDS: ENALAPRIL MALEATE 5 MG TAB PO SCH (09:35)
[2017-01-29] MEDS: CARVEDILOL 12.5 MG TAB PO SCH (09:35)
[2017-01-29] MEDS: FUROSEMIDE 20 MG TAB PO SCH (09:35)
[2017-01-29] MEDS: ASPIRIN EC 81 MG TABEC PO SCH (09:35)
[2017-01-29] MEDS: DOCUSATE SODIUM 100 MG CAP PO SCH (09:35)
== END 2017-01-29 10:51 | disposition home or self-care (01) | DRG 292 ==
LOC: NEPE 15:41 → OBSVTOIN 18:03 → NEDA 18:03 → N06B 01-28 00:40
PROVIDERS: ADMIT Family Medicine; ATTEND Family Medicine
DX: I50.23 Acute on chronic systolic (congestive) heart failure (principal); I42.0 Dilated cardiomyopathy; J44.9 Chronic obstructive pulmonary disease, unspecified; E78.5 Hyperlipidemia, unspecified; Z95.810 Presence of automatic (implantable) cardiac defibrillator; R74.8 Abnormal levels of other serum enzymes; I12.9 Hypertensive chronic kidney disease with stage 1 through stage 4 chronic kidney disease, or unspecified chronic kidney disease; N18.9 Chronic kidney disease, unspecified; N28.9 Disorder of kidney and ureter, unspecified; Z87.891 Personal history of nicotine dependence
CPT/HCPCS: 71010; 74177; 80048; 80053; 82550; 83690; 83880; 84484; 85025; 85610; 85730; 93005; 93306; J1650; J1940; Q9967